=== PATIENT | male | born 1960 | race Caucasian/White ===

== ENCOUNTER → 2020-12-09 | Outpatient (CLI) | payer BC ==
[~2020-12-09] MED LIST: ASPIRIN EC81 MG PO; HYDRALAZINE HCL50 MG PO; PRINIVIL20 MG PO; VOLTAREN EC 7575 MG PO
== END ==
LOC: EXRD 11:38
DX: R07.9 Chest pain, unspecified (principal); M54.5 Low back pain; M16.0 Bilateral primary osteoarthritis of hip; M46.96 Unspecified inflammatory spondylopathy, lumbar region; Z95.4 Presence of other heart-valve replacement
CPT/HCPCS: 71046; 72100

== ENCOUNTER → 2021-01-21 | Outpatient (CLI) | payer BC | LOC: RT 16:28 | DX: I10 Essential (primary) hypertension (principal); I63.9 Cerebral infarction, unspecified; I44.7 Left bundle-branch block, unspecified; R94.31 Abnormal electrocardiogram [ECG] [EKG] | CPT/HCPCS: 93005 ==

== ENCOUNTER → 2021-01-29 | Outpatient (CLI) | payer BC | LOC: HEART 5 13:03 | DX: I49.3 Ventricular premature depolarization (principal) ==

== ENCOUNTER → 2021-02-23 | Outpatient (CLI) | payer BC | LOC: ECHO 13:21 | DX: R94.31 Abnormal electrocardiogram [ECG] [EKG] (principal); I08.0 Rheumatic disorders of both mitral and aortic valves; I27.20 Pulmonary hypertension, unspecified | CPT/HCPCS: ECHO; 93306 ==

== ENCOUNTER → 2021-03-12 | Outpatient (CLI) | payer BC | LOC: HEART 5 08:02 | DX: R07.9 Chest pain, unspecified (principal); I51.89 Other ill-defined heart diseases | CPT/HCPCS: 78452; A9502; J2785 ==